=== PATIENT | female | born 1995 | race Caucasian/White ===

== ENCOUNTER 2018-06-21 15:37 | Emergency (ER) | payer OTHER ==
[~2018-06-21] VITALS: Ht 154.9 cm; Wt 56.7 kg
[2018-06-21 15:45] VITALS: BP 83/45
--- NOTE | 2018-06-21 15:50 | NUR ---
PT BIBA TO BED 3
--- NOTE | 2018-06-21 15:52 | NUR ---
22 Y.O F LUDIN FROM [facility] C/O ETOH USE. +N/V. NO FALLS/TRAUMA REPORTED. HX: NONE RX: NONE NKA
[2018-06-21] MEDS ORDERED: NACL 0.9% 2,000 ML IV ONE (15:55)
[2018-06-21] MEDS ORDERED: ONDANSETRON 4 MG/2 ML VIAL IVP ONE (15:55)
[2018-06-21 17:36] VITALS: BP 106/62
== END 2018-06-21 17:36 | disposition home or self-care (01) ==
LOC: MED 15:37
DX: F10.129 Alcohol abuse with intoxication, unspecified (principal); Y90.9 Presence of alcohol in blood, level not specified
CPT/HCPCS: 96361; 96374; 99283; J2405; J7030